=== PATIENT | female | born 1970 | race Caucasian/White ===

== ENCOUNTER → 2017-11-17 07:29 | Outpatient (CLI) | payer OTHER, SELFPAY ==
--- NOTE | 2017-11-17 07:33 | HPBI_ITS ---
MAMMOGRAPHY - BILATERAL SCREENING REASON FOR EXAM: Female, 47 years old. Routine annual screening examination. PERTINENT HISTORY: Aunt with breast cancer. TECHNIQUE: Digital bilateral breast pia (3D mammographic acquisition) in the CC and MLO projections. 2-D mediolateral oblique (MLO) and craniocaudad (CC) views of both breasts were obtained. CAD: Full Field Digital Mammography with Computer Added Detection was performed. COMPARISON: Comparison is made with prior study dated October 30, 2016 and August 27, 2015. FINDINGS: Breast Composition: The breasts are extremely dense, which lowers the sensitivity of mammography. There are no dominant masses or suspicious calcifications. A tissue clip marker is once again seen in the medial retroareolar region of the right breast. Stable appearance of the scattered calcifications in the retroareolar region of the right breast. No other significant abnormalities are identified. There has been no significant change since the prior study. HPBI/SCREENING MAMM (CAD), BILAT IMPRESSION: Stable bilateral screening mammogram. Yearly follow-up mammogram recommended. (A) ASSESSMENT CATEGORY: BIRADS Category 2: Benign. A letter regarding these results will be sent to the patient by the facility within 30 days. Approximately 10% of breast cancers are not detected by mammography. A normal mammogram should not delay biopsy of a clinically suspicious abnormality. [id number] Electronically Signed: Domenic Guzman MD at 9:22 EST Tel [phone], Service support ,
== END ==
PROVIDERS: Family Provider Internal Medicine; PCP Internal Medicine; Visit Provider Obstetrics & Gynecology
DX: Z12.31 Encounter for screening mammogram for malignant neoplasm of breast (principal)
CPT/HCPCS: 77063; 77067

== ENCOUNTER → 2018-01-05 14:42 | Outpatient (CLI) | payer OTHER, SELFPAY ==
--- NOTE | 2018-01-05 14:45 | RAD_ITS ---
STUDY: X-RAY CHEST REASON FOR EXAM: Female, 47 years old. Productive cough. Chest pain and dyspnea. TECHNIQUE: PA and lateral views of the chest. COMPARISON: None. FINDINGS: The lungs are clear and expanded. There is no demonstrated pleural abnormality. Normal size heart. Normal mediastinum and rica. Normal visualized pulmonary arteries. Normal visualized aortic arch and descending thoracic aorta. There are mild degenerative changes of the visualized thoracic spine. Normal visualized ribs, clavicles, and shoulders. There is no demonstrated abnormality of the visualized soft tissue structures of the upper abdomen. RAD/Chest PA and Lateral IMPRESSION: Normal x-ray examination of the chest. Electronically Signed: Domenic Guzman MD at 15:02 EDT Tel [phone], Service support ,
== END ==
PROVIDERS: Family Provider Internal Medicine; PCP Internal Medicine; Visit Provider Physician Assistant Surgical
DX: R09.89 Other specified symptoms and signs involving the circulatory and respiratory systems (principal)
CPT/HCPCS: 71046

== ENCOUNTER → 2018-12-14 07:49 | Outpatient (CLI) | payer OTHER, SELFPAY ==
[2018-01-05 14:35] VITALS: BMI 27.5
[2018-12-14 09:35] LABS: Cholesterol 296 mg/dL (200); Glucose 107 mg/dL (74-106); High Density Lipoprotein 121 mg/dL; Triglycerides 74 mg/dL; Very Low Density Lipoprotein 15 mg/dL (5-40)
== END ==
PROVIDERS: Family Provider Internal Medicine; PCP Internal Medicine; Referring Provider Internal Medicine; Visit Provider Internal Medicine
DX: Z00.00 Encounter for general adult medical examination without abnormal findings (principal)
CPT/HCPCS: 36415; 80061; 82947

== ENCOUNTER → 2018-12-28 07:59 | Outpatient (CLI) | payer OTHER, SELFPAY ==
[2018-01-05 14:35] VITALS: BMI 27.5
--- NOTE | 2018-12-28 08:02 | BI_ITS ---
MAMMOGRAPHY - BILATERAL SCREENING REASON FOR EXAM: Female, 48 years old. Routine annual screening examination. PERTINENT HISTORY: Aunt with breast cancer. Remote right stereotactic breast biopsy. TECHNIQUE: Digital bilateral breast pia (3D mammographic acquisition) in the CC and MLO projections. 2-D mediolateral oblique (MLO) and craniocaudad (CC) views of both breasts were obtained. CAD: Full Field Digital Mammography with Computer Added Detection was performed. COMPARISON: Comparison is made with prior study dated November 17, 2017 and October 30, 2016. FINDINGS: Breast Composition: The breasts are extremely dense, which lowers the sensitivity of mammography. There are no dominant masses or suspicious calcifications. Once again, a tissue clip marker is seen in the medial retroareolar region of the right breast. Stable appearance of the scattered microcalcifications in the retroareolar areolar region of the right breast. No other significant abnormalities are identified. There has been no significant change since the prior study. BI/SCREENING MAMM (CAD), BILAT IMPRESSION: Stable bilateral screening mammogram. Yearly follow-up mammogram recommended. (A) ASSESSMENT CATEGORY: BIRADS Category 2: Benign. A letter regarding these results will be sent to the patient by the facility within 30 days. Approximately 10% of breast cancers are not detected by mammography. A normal mammogram should not delay biopsy of a clinically suspicious abnormality. [id number] Electronically Signed: Domenic Guzman, at 9:56 EDT , Service support ,
== END ==
PROVIDERS: Family Provider Internal Medicine; PCP Internal Medicine; Referring Provider Obstetrics & Gynecology; Visit Provider Obstetrics & Gynecology
DX: Z12.31 Encounter for screening mammogram for malignant neoplasm of breast (principal)
CPT/HCPCS: 77063; 77067

== ENCOUNTER → 2019-04-12 11:50 | Outpatient (CLI) | payer OTHER, SELFPAY ==
[2019-04-13 22:07] LABS: CHOLESTEROL TOTAL 286 mg/dL (100-199); HDL-C 119 mg/dL (>39); HDL-P TOTAL 47.2 umol/L (>=30.5); SMALL LDL-P <90 nmol/L (<=527); TRIGLYCERIDES 82 mg/dL (0-149)
[2019-04-15 12:56] LABS: INSULIN RESISTANCE SCORE 29 (<=45); LDL SIZE 21.9 nm (>20.5); LDL-C 151 mg/dL (0-99); LDL-P 1274 nmol/L (<1000)
== END ==
PROVIDERS: Family Provider Internal Medicine; PCP Internal Medicine; Referring Provider Internal Medicine; Visit Provider Internal Medicine
DX: E78.00 Pure hypercholesterolemia, unspecified (principal)
CPT/HCPCS: 36415; 80061; 83704

== ENCOUNTER → 2020-05-21 08:00 | Outpatient (CLI) | payer OTHER, SELFPAY ==
--- NOTE | 2020-05-21 08:02 | BI_ITS ---
MAMMOGRAPHY - BILATERAL SCREENING REASON FOR EXAM: Female, 50 years old. Routine annual screening examination. PERTINENT HISTORY: Aunt with breast cancer. Remote right stereotactic breast biopsy. TECHNIQUE: Digital bilateral breast beth (3D mammographic acquisition) in the CC and MLO projections. 2-D mediolateral oblique (MLO) and craniocaudad (CC) views of both breasts were obtained. CAD: Full Field Digital Mammography with Computer Added Detection was performed. COMPARISON: Comparison is made with prior study dated 12/28/2018 and 11/17/2014. FINDINGS: Breast Composition: The breasts are extremely dense, which lowers the sensitivity of mammography. There are no dominant masses or suspicious calcifications. Benign-appearing left axillary lymph nodes. A tissue clip marker is once again seen in the medial retroareolar region of the right breast. No other significant abnormalities are identified. There has been no significant change since the prior study. BI/SCREEN MAMM (CAD) W/BETH BILAT IMPRESSION: Stable bilateral screening mammogram. Yearly follow-up mammogram recommended. (A) ASSESSMENT CATEGORY: BIRADS Category 2: Benign. A letter regarding these results will be sent to the patient by the facility within 30 days. Approximately 10% of breast cancers are not detected by mammography. A normal mammogram should not delay biopsy of a clinically suspicious abnormality. [id number] Electronically Signed: Domenic uGzman, at 9:20 EDT , Service support ,
== END ==
PROVIDERS: PCP Internal Medicine; Referring Provider Obstetrics & Gynecology; Visit Provider Obstetrics & Gynecology
DX: Z12.31 Encounter for screening mammogram for malignant neoplasm of breast (principal)
CPT/HCPCS: 77063; 77067

== ENCOUNTER 2020-10-25 20:21 | Emergency (ER) | payer OTHER, SELFPAY ==
[2020-10-25 20:22] VITALS: BP 120/94; PULSE 78; RESP 16; TEMP 35.7; O2SAT 100; BMI 28.5
--- NOTE | 2020-10-25 20:34 | RAD_ITS ---
STUDY: X-RAY - LEFT HAND REASON FOR EXAM: Female, 50 years old. Pt injured left hand during martial arts class today. 4th digit pain and swelling. TECHNIQUE: 3 view(s) of the hand. COMPARISON: None. FINDINGS: Normal radiocarpal articulation. Normal distal radioulnar joint. Normal visualized carpal bones. Normal carpal articulations Normal carpometacarpal articulation of the thumb. Normal second through fifth carpometacarpal joints. Normal metacarpi. Normal metacarpophalangeal joint of the thumb. Normal interphalangeal joint of the thumb. Normal proximal and distal phalanges of the thumb. Normal metacarpophalangeal joints of the second through fifth fingers. There is dorsal dislocation of the fourth middle phalanx at the proximal interphalangeal joint. The soft tissue structures are unremarkable. RAD/Hand Min 3 Views IMPRESSION: Fourth middle phalanx dislocation at the proximal interphalangeal joint. Electronically Signed: Sandra Israel MD at 21:05 EST Tel , Service support ,
--- NOTE | 2020-10-25 20:35 | ED.VIS.GEN ---
History of Present Illness Chief Complaint: Upper Extremity Injury Informant: Patient Onset: Today Context: Sudden Onset Timing: Continuous Current Severity: Moderate Maximum Severity: Moderate Narrative: The patient is a 50-year-old female was otherwise healthy, [id number], the presents with injury to her left fourth finger. Patient was at judo class. She states she went to block a kick. She states that her finger snap. She took Tylenol prior to arrival. She denies other injury. She is otherwise been in her normal state of health. Prior similar symptoms: No Recent Illness/Hospitalization: No Past Medical History - Allergies and Home Meds Allergies/Adverse Reactions: Allergies morphine Allergy (Verified 10/25/20 20:24) Rash Primary Care Physician: Lawrence De La Vega MD [STAFF PHYSICIAN] - 1 Week Prior records reviewed: Yes Past Medical History: None Surgical History: no surgical history Smoking Status: Former smoker Review of Systems General: Denies: Chills, Fever, Sweats Eyes: Denies: Visual changes - bilaterally, Diplopia ENT: Denies: Rhinorrhea, Sore throat Cardiovascular: Denies: Chest pain, Palpitations Respiratory: Denies: Dyspnea, Cough, Dyspnea on exertion Gastrointestinal: Denies: Abdominal pain, Nausea, Vomiting, Diarrhea, Melena, Hematochezia Genitourinary: Denies: Dysuria, Hematuria, Frequency Musculoskeletal: Denies: Back pain, Extremity Pain Skin: Denies: Rash, Wounds Neurological: Denies: Headache, Weakness, Numbness Physical Exam Vital Signs/Narrative: Vital Signs Temp Pulse Resp BP Pulse Ox 10/25/20 20:22 96.2 F L 78 16 120/94 H 100 Inital Vital Signs reviewed: Yes General: Well nourished, Well developed, No Acute Distress Head: Normocephalic, Atraumatic Eyes: Perrl, EOMI ENT: Moist mucous membranes, No rhinorrhea Neck: Supple, Nontender Cardiovascular: Regular rate, Regular rhythm, No murmurs Respiratory: No distress, CTA bilaterally, Chest nontender Abdomen: Soft, Nontender, Nondistended, Normal bowel sounds Back: Nontender, Normal Inspection Extremities: No edema, Tenderness - Patient has deformity at the left PIP joint. Cap refill is less than 2 seconds. Sensation preserved. Skin: Normal color, No rash Neurological: Alert, Oriented x3, Cranial nerves II-XII grossly intact, Normal Strength, Normal Sensation Psychological: Normal affect, Normal Mood Diagnostic/Tx/Re-eval - Medical Decision Making Patient presents with finger pain. I do suspect dislocation. Plain films of the hand were obtained. They were reviewed by myself. There is no onset fracture. She does have a posterior dislocation at the PIP. Patient was consented for reduction. Digital block was performed. Under aseptic technique, a total of 8 cc was injected bupivacaine on both sides of the finger. Once anesthesia was achieved, the finger was easily reduced. The patient was placed in a AlumaFoam finger splint. X-rays were repeated and showed questionable bony disruption, but no displacement. The patient is resting comfortably. At this point, she will be discharged home. Impression 1. PIP dislocation left fourth finger 2. Digital block 3. Reduction of dislocation ED Disposition - Plan for ED Patient: Instructions: ED Finger Dislocation Referrals: Lawrence De La Vega MD [STAFF PHYSICIAN] - 1 Week
--- NOTE | 2020-10-25 21:05 | RAD_ITS ---
STUDY: X-RAY - LEFT HAND, ATTENTION 4 FINGER REASON FOR EXAM: Female, 50 years old. Post reduction. Left 4th digit. Lateral only per ER physician. TECHNIQUE: 1 view of the finger was obtained. COMPARISON: 10/25/2020 8:33 PM FINDINGS: Normal metacarpal head. Normal metacarpophalangeal joint. Normal proximal phalanx. There has been an interval successful reduction of the fourth middle phalanx. There is a cortical defect at the base of the middle phalanx along the ventral aspect of the bone. Normal distal phalanx. Normal proximal interphalangeal joint. Normal distal interphalangeal joint. RAD/Finger(s) Min 2 Views IMPRESSION: Interval successful reduction of the middle phalanx. Fourth middle phalanx fracture. Electronically Signed: Sandra Israel MD at 21:37 EST Tel , Service support ,
[2020-10-25] MEDS: Bupivacaine Mpf 0.5% 30 ML VIAL INFILT (21:24)
[2020-10-25 21:25] VITALS: BP 120/94; PULSE 78; RESP 16
== END 2020-10-25 21:26 | disposition home or self-care (01) ==
LOC: ED 21:21
PROVIDERS: Emergency Provider Emergency Medicine; PCP Internal Medicine
DX: S63.285A Dislocation of proximal interphalangeal joint of left ring finger, initial encounter (principal); W51.XXXA Accidental striking against or bumped into by another person, initial encounter; Y93.75 Activity, martial arts; Y92.89 Other specified places as the place of occurrence of the external cause; Y99.9 Unspecified external cause status; Z87.891 Personal history of nicotine dependence
CPT/HCPCS: 26770; 73130; 73140; 99282

== ENCOUNTER 2021-05-16 19:51 | Emergency (ER) | payer OTHER, SELFPAY ==
[2021-05-16 19:52] VITALS: BP 159/88; PULSE 78; RESP 18; TEMP 36.6; O2SAT 98; BMI 27.4
--- NOTE | 2021-05-16 20:10 | RAD_ITS ---
STUDY: X-RAY - LEFT HAND REASON FOR EXAM: Female, 51 years old. Middle finger pain TECHNIQUE: 3 view(s) of the hand. COMPARISON: 10/25/2020. FINDINGS: Posterior dislocation of the third PIP joint. Tiny osseous fragment at the head of the third proximal phalanx may represent a small avulsion fracture. There is moderate associated soft tissue swelling. The remainder the osseous structures appear intact. RAD/Hand Min 3 Views IMPRESSION: Posterior dislocation of the third PIP joint. Tiny osseous fragment at the head of the third proximal phalanx may represent a small avulsion fracture. Electronically Signed: Andrea Garcia MD at 20:53 EDT Tel , Service support ,
--- NOTE | 2021-05-16 21:02 | EDS_ITS ---
HPI History of Present Illness Chief Complaint: Upper Extremity Injury Narrative Narrative: 51-year-old female presenting with right hand third digit pain after she was doing taekwondo and blocked a kick. She states she has a history of finger dislocation in the right hand fourth digit. She was wearing a brace for this when she was kicked. She complains of difficulty moving her finger. She denies numbness or tingling. She does admit to pain in the middle of her finger. She is unable to flex or extend the mid finger. [facility] Medical History Asthma Hay fever History of endometriosis Shortness of breath Home Medications albuterol sulfate 1 inh INHALATION PRN PRN 01/16/14 [History Last Taken Unknown] fluticasone furoate 1 drp NASAL DAILY 01/16/14 [History Last Taken 01/26/14 08:30] fluoxetine 20 mg PO DAILY 10/25/20 [History Last Taken Unknown] fluticasone propion-salmeterol [Advair HFA] 2 puff INHALATION BID 05/16/21 [History Last Taken Unknown] naproxen [Naprosyn] 500 mg PO BID PRN #30 tab 05/16/21 [Rx Last Taken Unknown] Allergy/AdvReac Type Severity Reaction Status Date / Time morphine Allergy Rash Verified 05/16/21 19:54 Surgical History History of breast biopsy History of laparoscopy Social History Smoking Status: Former smoker alcohol intake: current alcohol intake frequency: a few times a week Alcohol type: wine ROS ROS ED Constitutional Constitutional ED: Denies chills or sweats Eyes Eyes: Denies blurry vision or change in vision ENT ENT ED: Denies rhinorrhea or sore throat Cardiovascular Cardiovascular: Denies chest pain or palpitations Respiratory/Chest Respiratory/Chest: Denies cough or dyspnea Gastrointestinal Gastrointestinal: Denies abdominal pain, nausea or vomiting Genitourinary Genitourinary ED: Denies dysuria or hematuria Musculoskeletal Musculoskeletal: Reports other Details: Right hand third digit pain ; Denies back pain or neck pain Integumentary Denies abscess or rash Neurologic Neurologic: Denies headache(s) or paresthesias EXAM Physical Exam Const Vital Signs: 05/16/21 19:52 Temperature 97.8 F Temperature Source Temporal Pulse Rate 78 Respiratory Rate 18 Blood Pressure 159/88 H Blood Pressure Mean 111 Pulse Ox 98 Oxygen Delivery Method Room Air Positive well nourished General Appearance ED: NAD HEENT normocephalic and atraumatic Eyes PERRL Resp normal respiratory effort Effort and Inspection: able to speak in complete sentences Extremity Extremity Narrative: Tenderness palpation right hand PIP. Limited range of motion at this joint. Deformity is noted. Right hand neurovascular intact with brisk cap refill to all 5 fingers. Neuro oriented x3 and CN's II-XII intact bilaterally Sensorium / Orientation: alert Psych mental status grossly normal Skin Lesions: no lesions Rashes: no rashes MDM MDM MDM Narrative Medical decision making narrative: Patient presenting with right hand PIP pain. There is tenderness to palpation and inability to flex and extend this joint. I obtained imaging of the right hand which shows posterior dislocation of the third PIP on my interpretation. The radiologist does agree. but states there might be a small fracture fragment. Patient's right third digit was cleaned with alcohol swab. Lidocaine without epinephrine was used to perform a digital nerve block which patient tolerated well. After this good anesthesia was achieved. Right PIP joint was reduced without difficulty. Patient's follow-up hand x-ray does show good anatomic alignment of previously dislocated finger on my interpretation. The radiologist does agree. At this time he does not see a fracture fragment. Patient placed in a finger splint. Patient has an orthopedic surgeon that she can follow-up with for her hand as she previously dislocated the right fourth PIP. Patient given Naprosyn for pain because she states that she cannot tolerate narcotics. Patient counseled on ice, rest, elevation. Impression: 1. Right hand third digit, PIP dislocation/reduced Radiography Diagnostic Testing: Radiology Impression Hand X-Ray 05/16/21 20:10 IMPRESSION: Posterior dislocation of the third PIP joint. Tiny osseous fragment at the head of the third proximal phalanx may represent a small avulsion fracture. Electronically Signed: Andrea Garcia MD at 20:53 EDT Tel , Service support , Discharge Plan Triage Chief Complaint: Upper Extremity Injury ED Provider: Jason Neal Dx/Rx/DC Orders Instructions: ED Finger Dislocation Prescriptions: New naproxen [Naprosyn] 500 mg tablet 500 mg PO BID PRN (Reason: pain) Qty: 30 RF: 0 No Action albuterol sulfate 8.5 GM HFA aerosol inhaler 1 inh INHALATION PRN PRN (Reason: ALLERGRIES) RF: 0 fluticasone furoate 10 GM spray,suspension 1 drp NASAL DAILY RF: 0 fluoxetine 20 MG capsule 20 mg PO DAILY RF: 0 Advair HFA 115-21 mcg/actuation Hfa Aerosol Inhaler 2 puff INHALATION BID RF: 0 Primary Care Provider: Goldie Berry Referrals: Goldie Berry DO [Primary Care Provider] -
--- NOTE | 2021-05-16 22:00 | RAD_ITS ---
HISTORY: Post reduction EXAMINATION/TECHNIQUE: XR Hand Min 3 Views: COMPARISON: Left hand series earlier same date FINDINGS: 3 views show anatomic reduction of the third PIP joint. No fracture identified. RAD/Hand Min 3 Views IMPRESSION: Status post anatomic reduction of the third PIP joint at 2308 Reported and signed by: Speedy Smith MD Electronically Signed: Speedy Smith MD at 23:07 EDT Tel , Service support ,
[2021-05-16] MEDS: Lidocaine 1% (20 ml mdv) 20 ML Vial INFILT (22:07)
[2021-05-16] MEDS: Naproxen 500 MG Tablet PO (22:19)
== END 2021-05-16 23:36 | disposition home or self-care (01) ==
PROVIDERS: Emergency Provider Student in an Organized Health Care Education/Training Program; PCP Internal Medicine
DX: M24.444 Recurrent dislocation, right finger (principal); J45.909 Unspecified asthma, uncomplicated; Z79.1 Long term (current) use of non-steroidal anti-inflammatories (NSAID); Z79.51 Long term (current) use of inhaled steroids; Z87.891 Personal history of nicotine dependence
CPT/HCPCS: 73130; 99283

== ENCOUNTER → 2021-07-08 08:23 | Outpatient (CLI) | payer OTHER, SELFPAY ==
--- NOTE | 2021-07-08 08:25 | BI_ITS ---
MAMMOGRAPHY - BILATERAL SCREENING REASON FOR EXAM: Female, 51 years old. Routine annual screening examination. PERTINENT HISTORY: Non-contributory. Remote right stereotactic breast biopsy. TECHNIQUE: Digital bilateral breast beth (3D mammographic acquisition) in the CC and MLO projections. 2-D mediolateral oblique (MLO) and craniocaudad (CC) views of both breasts were obtained. CAD: Full Field Digital Mammography with Computer Added Detection was performed. COMPARISON: Comparison is made with prior examination 05/21/2020 and 12/28/2018. FINDINGS: Breast Composition: The breasts are extremely dense, which lowers the sensitivity of mammography. There are no dominant masses or suspicious calcifications. Stable benign-appearing bilateral axillary lymph nodes. A tissue clip marker is once again seen in the medial retroareolar region of the right No other significant abnormalities are identified. There has been no significant change since the prior study. BI/SCRN MAMM (CAD)W/BETH BILAT IMPRESSION: Stable bilateral screening mammogram. Yearly follow-up mammogram recommended. (A) ASSESSMENT CATEGORY: BIRADS Category 2: Benign. A letter regarding these results will be sent to the patient by the facility within 30 days. Approximately 10% of breast cancers are not detected by mammography. A normal mammogram should not delay biopsy of a clinically suspicious abnormality. [id number] Electronically Signed: Domenic Guzman MD at 9:14 EDT , Service support ,
== END ==
PROVIDERS: PCP Internal Medicine; Referring Provider Obstetrics & Gynecology; Visit Provider Obstetrics & Gynecology
DX: Z12.31 Encounter for screening mammogram for malignant neoplasm of breast (principal)
CPT/HCPCS: 77063; 77067

== ENCOUNTER → 2022-09-05 | Outpatient (CLI) | payer OTHER, SELFPAY ==
--- NOTE | 2022-09-05 09:17 | BI_ITS ---
MAMMOGRAPHY - BILATERAL SCREENING REASON FOR EXAM: Female, 52 years old. Routine annual screening examination. PERTINENT HISTORY: Non-contributory. Remote right stereotactic breast biopsy. TECHNIQUE: Digital bilateral breast beth (3D mammographic acquisition) in the CC and MLO projections. 2-D mediolateral oblique (MLO) and craniocaudad (CC) views of both breasts were obtained. CAD: Full Field Digital Mammography with Computer Added Detection was performed. COMPARISON: Comparison is made with prior study 07/08/2021 and 05/21/2020. FINDINGS: Breast Composition: The breasts are extremely dense, which lowers the sensitivity of mammography. There are no dominant masses or suspicious calcifications. A tissue clip marker is once again seen in the medial retroareolar region of the right breast. Stable appearance of the bilateral axillary lymph nodes. No other significant abnormalities are identified. There has been no significant change since the prior study. BI/SCRN MAMM (CAD)W/BETH BILAT IMPRESSION: Stable bilateral screening mammogram. Yearly follow-up mammogram recommended. (A) ASSESSMENT CATEGORY: BIRADS Category 2: Benign. A letter regarding these results will be sent to the patient by the facility within 30 days. Approximately 10% of breast cancers are not detected by mammography. A normal mammogram should not delay biopsy of a clinically suspicious abnormality. [id number] Electronically Signed: Domenic Guzman MD at 9:57 EST ,
== END | disposition home or self-care (01) ==
LOC: OPBI 09:02
PROVIDERS: PCP Internal Medicine; Referring Provider Student in an Organized Health Care Education/Training Program; Visit Provider Student in an Organized Health Care Education/Training Program
DX: Z12.31 Encounter for screening mammogram for malignant neoplasm of breast (principal)
CPT/HCPCS: 77063; 77067